=== PATIENT | female | born 1975 | race Caucasian/White ===

== ENCOUNTER 2017-04-15 12:08 | Emergency (ER) | payer BC ==
[2017-04-15 12:31] VITALS: BP 138/61
--- NOTE | 2017-04-15 13:20 | UC ---
Pediatric GI/ HPI - HPI Summary HPI Summary: Wednesday had urgency frequency burning with urination, took an azo on Wednesday she felt better-- sx have returned again - History Of Current Complaint Chief Complaint: UCGU Stated Complaint: FREQUENT URINATION, AND CRAMPS Time Seen by Provider: 04/15/17 13:17 Hx Obtained From: Patient Onset/Duration: Sudden Onset, Lasting Days - 3, Worse Since - today Severity Initially: Moderate Severity Currently: Moderate Pain Intensity: 6 Pain Scale Used: 0-10 Numeric Character: Urine Aggravating Factor(s): Nothing Alleviating Factor(s): OTC Medications - Azo Associated Signs And Symptoms: Positive: Dysuria, Increased Urinary Frequency - Allergies/Home Medications Allergies/Adverse Reactions: Allergies Allergy/AdvReac Type Severity Reaction Status Date / Time No Known Allergies Allergy Verified 04/15/17 12:31 Home Medications: Home Medications Phenazopyridine HCl [Azo Urinary Pain Relief] 95 mg PO BID PRN 04/15/17 [ History Confirmed 04/15/17] Past Medical History Previously Healthy: Yes Chronic Illness History: No: Diabetes - Immunization History Immunizations Up to Date: Yes Review Of Systems Constitutional: Negative Eyes: Negative ENT: Negative Cardiovascular: Negative Respiratory: Negative Gastrointestinal: Negative Genitourinary: Dysuria Musculoskeletal: Negative Skin: Negative Neurological: Negative Psychological: Negative All Other Systems Reviewed And Are Negative: Yes Physical Exam Triage Information Reviewed: Yes Vital Signs: Initial Vital Signs Temp 101.0 F 04/15/17 12:28 Pulse 107 04/15/17 12:28 Resp 16 04/15/17 12:28 BP 138/61 04/15/17 12:28 Pulse Ox 99 04/15/17 12:28 Appearance: Well-Appearing, No Pain Distress, Well-Nourished Eyes: Positive: Normal, Conjunctiva Clear ENT: Positive: Normal ENT inspection, Hearing grossly normal, Pharynx normal. Negative: Nasal congestion, Nasal drainage, Tonsillar swelling, Tonsillar exudate, Trismus, Muffled/hoarse voice, Dental tenderness Neck: Positive: Supple, Nontender Respiratory: Positive: Chest non-tender, Lungs clear, Normal breath sounds, No respiratory distress, No accessory muscle use Cardiovascular: Positive: Normal, RRR, No Murmur, Pulses Normal, Brisk Capillary Refill Abdomen Description: Positive: Soft, Nontender, 4, No Organomegaly Bowel Sounds: Present Musculoskeletal: Positive: Normal, Strength Intact, ROM Intact Neurological: Positive: Normal, Alert Psychological: Positive: Normal, Normal Response To Family, Age Appropriate Behavior Pediatric GI Course/Dx - Course Course Of Treatment: azo, keflex, culture urine follow with pcp - Differential Dx/Diagnosis Differential Diagnosis/HQI/PQRI: Appendicitis, UTI Provider Diagnoses: UTI Discharge - Discharge Plan Condition: Stable Disposition: HOME Prescriptions: Cephalexin CAP* [Keflex CAP*] 500 mg PO BID #20 cap Patient Education Materials: Cephalexin (By mouth), Phenazopyridine (By mouth) , Urinary Tract Infection in Women (ED), Fever in Adults (ED) Referrals: Guerline Coombs MD [Primary Care Provider] - If Needed
== END 2017-04-15 13:34 | disposition home or self-care (01) ==
LOC: UCEAST 12:08
DX: N39.0 Urinary tract infection, site not specified (principal)
CPT/HCPCS: 87086; 99212; G0463

== ENCOUNTER 2019-02-27 12:04 | Emergency (ER) | payer BC ==
[2019-02-27 12:54] VITALS: BP 141/83
--- NOTE | 2019-02-27 13:48 | UC ---
Complaint Female HPI - HPI Summary HPI Summary: 43-year-old woman with a chief complaint of urinary urgency for 3 days. The symptoms remind her of urinary tract infection. 3 days ago she started with diarrhea and urinary urgency. Diarrhea has improved however she continues to have the urinary urgency. No fevers. She is drinking lots of water and cranberry juice and that does help with the symptoms some. She does have some suprapubic discomfort and now she started to get some right flank discomfort. - History Of Current Complaint Chief Complaint: UCGU Stated Complaint: URINARY ISSUE Time Seen by Provider: 02/27/19 13:26 Hx Last Menstrual Period: IUD, spotting 3 wks ago Pain Intensity: 2 - Allergies/Home Medications Allergies/Adverse Reactions: Allergies Allergy/AdvReac Type Severity Reaction Status Date / Time No Known Allergies Allergy Verified 02/27/19 12:55 PMH/Surg Hx/FS Hx/Imm Hx Previously Healthy: Yes - Surgical History Surgical History: None - Family History Known Family History: Positive: Cardiac Disease - Social History Alcohol Use: Occasionally Substance Use Type: None Smoking Status (MU): Former Smoker Review of Systems All Other Systems Reviewed And Are Negative: Yes Constitutional: Positive: Negative Skin: Positive: Negative Eyes: Positive: Negative ENT: Positive: Negative Respiratory: Positive: Negative Cardiovascular: Positive: Negative Gastrointestinal: Positive: Diarrhea Genitourinary: Positive: Urgency. Negative: Vaginal/Penile Discharge Motor: Positive: Negative Neurovascular: Positive: Negative Musculoskeletal: Positive: Negative Neurological: Positive: Negative Psychological: Positive: Negative Is Patient Immunocompromised?: No Physical Exam Triage Information Reviewed: Yes Appearance: Well-Appearing, No Pain Distress, Well-Nourished Vital Signs: Initial Vital Signs Temp 97.9 F 02/27/19 12:52 Pulse 97 02/27/19 12:52 Resp 12 02/27/19 12:52 BP 141/83 02/27/19 12:52 Pulse Ox 99 02/27/19 12:52 Vital Signs Reviewed: Yes Eye Exam: Normal Eyes: Positive: Conjunctiva Clear Neck: Positive: Supple Respiratory: Positive: Lungs clear, Normal breath sounds, No respiratory distress Cardiovascular: Positive: RRR Abdomen Description: Positive: CVA Tenderness (R) - mild. Negative: CVA Tenderness (L) Musculoskeletal: Positive: Strength Intact, ROM Intact Neurological Exam: Normal Neurological: Positive: Alert, Muscle Tone Normal Psychological Exam: Normal Psychological: Positive: Age Appropriate Behavior Skin Exam: Normal Complaint Female Dx - Differential Dx/Diagnosis Provider Diagnosis: UTI (urinary tract infection) Discharge - Sign-Out/Discharge Documenting (check all that apply): Patient Departure All imaging exams completed and their final reports reviewed: No Studies - Discharge Plan Condition: Stable Disposition: HOME Prescriptions: Sulfamethox/Trimethoprim DS* [Bactrim DS 800/160 TAB*] 1 tab PO BID #14 tab Patient Education Materials: Urinary Tract Infection in Women (ED) Referrals: Guerline Coombs MD [Primary Care Provider] - Additional Instructions: FOLLOW UP WITH YOUR DOCTOR IF NOT COMPLETELY IMPROVED. GET REEVALUATED SOONER IF YOUR CONDITION WORSENS OR ANY QUESTIONS OR CONCERNS. - Billing Disposition and Condition Condition: STABLE Disposition: Home
--- NOTE | 2019-02-28 15:13 | UC ---
- Progress Note Progress Note: notify pt no UTI stop antibiotic see PCP if still symptomatic Course/Dx - Diagnoses Provider Diagnoses: UTI (urinary tract infection) Discharge - Sign-Out/Discharge Documenting (check all that apply): Post-Discharge Follow Up All imaging exams completed and their final reports reviewed: No Studies - Discharge Plan Condition: Stable Disposition: HOME Prescriptions: Sulfamethox/Trimethoprim DS* [Bactrim DS 800/160 TAB*] 1 tab PO BID #14 tab Patient Education Materials: Urinary Tract Infection in Women (ED) Referrals: Guerline Coombs MD [Primary Care Provider] - Additional Instructions: FOLLOW UP WITH YOUR DOCTOR IF NOT COMPLETELY IMPROVED. GET REEVALUATED SOONER IF YOUR CONDITION WORSENS OR ANY QUESTIONS OR CONCERNS. - Billing Disposition and Condition Condition: STABLE Disposition: Home
== END 2019-02-27 13:57 | disposition home or self-care (01) ==
LOC: UCEAST 12:04 → EDSEX 12:04 → UCEAST 13:57
DX: N39.0 Urinary tract infection, site not specified (principal); Z87.891 Personal history of nicotine dependence
CPT/HCPCS: 81003; 87086; 99212; G0463